=== PATIENT | male | born 1985 | race Caucasian/White ===

== ENCOUNTER 2020-10-27 13:34 | Emergency (ER) | payer OTHER ==
[2020-10-27] MEDS ORDERED: CILOXAN5 ML OP (14:26)
== END 2020-10-27 15:00 | disposition home or self-care (01) ==
LOC: ER1 13:34
DX: H10.9 Unspecified conjunctivitis (principal); F17.200 Nicotine dependence, unspecified, uncomplicated; Z97.3 Presence of spectacles and contact lenses
CPT/HCPCS: 99282